=== PATIENT | female | born 1975 | race Caucasian/White ===

== ENCOUNTER 2020-03-04 11:15 | Emergency (ER) | payer MEDICAID, SELFPAY ==
[~2020-03-04] VITALS: Ht 157.5 cm; Wt 62.6 kg
[2020-03-04 11:42] VITALS: BP_SYST 110
--- NOTE | 2020-03-04 11:47 | NUR ---
Patient triaged and placed in waiting room. VSS and patient appears in no acute distress at this time. Accompanied by care worker, awaiting available bed, and MD notified of need for MSE.
[2020-03-04 12:17] LABS: BASOPHILS # (AUTO) 0.1 K/uL (0.0-0.2); BASOPHILS % (AUTO) 0.8 % (0.0-2.0); EOSINOPHILS % (AUTO) 0.5 % (0.0-4.0); HEMATOCRIT 40.3 % (36-48); HEMOGLOBIN 13.9 g/dL (12.0-16.0); LYMPHOCYTES # (AUTO) 1.2 K/uL (1.0-5.5); MEAN CORPUSCULAR HEMOGLOBIN 33 pg (27-31); MEAN CORPUSCULAR HGB CONC 34 % (32-36); MEAN CORPUSCULAR VOLUME 95 fL (79.0-98.0); MONOCYTES # (AUTO) 0.7 K/uL (0.0-1.0); MONOCYTES % (AUTO) 7.7 % (1.7-9.3); PLATELET COUNT (AUTO) 287 K/uL (130-430); RED BLOOD CELL COUNT(AUTO) 4.23 MIL/uL (4.2-6.2); RED CELL DISTRIBUTION WIDTH 12.8 % (9.0-15.0)
[2020-03-04 12:58] LABS: ANION GAP 5 (5-15); CALCIUM 8.9 mg/dL (8.4-11.0); CHLORIDE 102 mmol/L (98-107); CREATININE 0.85 mg/dL (0.55-1.30); GLUCOSE 175 mg/dL (70-99); POTASSIUM 4.4 mmol/L (3.5-5.1); SODIUM SERUM 137 mmol/L (136-145); UREA NITROGEN, BLOOD 11 mg/dL (8-21)
--- NOTE | 2020-03-04 12:58 | NUR ---
Note veraone in EDM - 03/04/20 at 1259 by OMAR Patient triaged and placed ER tent. VSS and patient appears in no acute distress at this time. Awaiting available bed, and MD notified of need for MSE.
[2020-03-04 13:03] LABS: ALANINE AMINOTRANSFERASE 38 U/L (12-78); ALBUMIN 4.3 g/dL (3.4-4.8); ASPARTATE AMINOTRANSFERASE 49 U/L (10-37); TOTAL BILIRUBIN 0.3 mg/dL (0.0-1.0)
[2020-03-04 13:05] LABS: ACETAMINOPHEN < 1 ug/mL (1-30); ALCOHOL, BLOOD < 3 mg/dL (<10); GFR AFRICAN AMERICAN 94 mL/min (>90)
[2020-03-04 17:38] LABS: BARBITURATE, URINE NEGATIVE (NEG <=200); BENZODIAZEPINE, URINE POSITIVE (NEG <=150); CANNABINOID, URINE NEGATIVE (NEG <=50); COCAINE, URINE NEGATIVE (NEG <=150); METHAMPHETAMINES SCREEN,URINE NEGATIVE (NEG <=500); OPIATE, URINE NEGATIVE (NEG <=100); PHENCYCLIDINE SCREEN,URINE NEGATIVE (NEG <=25); UR TRICYCLIC ANTIDEPRESSANTS NEGATIVE (NEG <=300); URINE AMPHETAMINE NEGATIVE (NEG <=500); URINE METHADONE NEGATIVE (NEG <=200); URINE OXYCODONE SCREEN NEGATIVE (NEG <=100); URINE PROPOXYPHENE SCREEN NEGATIVE (NEG <=300)
--- NOTE | 2020-03-04 19:41 | NUR ---
Patient placed on suicide precautions. Patient placed in room within close proximity to nurses' station for closer observation and monitoring. All clothing removed, placed in hospital gown. Metal detector wand used to further screen patient of any potential hazardous belongings. All belongings inventoried, placed in bags and removed from room. Cabinets locked. BP and pulse oximeter cords, and carpet cleaning technician leads removed.
--- NOTE | 2020-03-04 20:10 | NUR ---
Received patient to ER w/ c/o hearing voices which are "loud and obnoxious" telling patient to cut her ears and hair off and also to hurt other people". Voices started this morning after waking up from the motel and voices are still ongoing. Introduced self to patient, positioned for comfort and safety w/ bed to low position sr up. Family member at bedside. Continue to monitor. Patient h/o of sz, sz precautions in effect.
--- NOTE | 2020-03-04 20:55 | NUR ---
patient ok to take her own medication per MD Kruger. Patient administered medications. Will observe for any adverse reaction. Bed to low position sr up, continue to monitor.
[2020-03-04] MEDS ORDERED: HAL5 PO (21:05)
[2020-03-04] MEDS ORDERED: ESCI10TA PO (21:05)
[2020-03-04] MEDS ORDERED: CLOB20TA3 PO (21:05)
[2020-03-04] MEDS ORDERED: LACO100T2 PO (21:05)
[2020-03-04] MEDS ORDERED: DIPH50CA38 PO (21:05)
[2020-03-04] MEDS ORDERED: PRAV40TA PO (21:05)
[2020-03-04] MEDS ORDERED: RUFI400T PO (21:05)
--- NOTE | 2020-03-04 22:43 | NUR ---
Patient resting comfortably at this time in no acute distress, bizarre or unusual behavior noted. Caregiver at bedside. Continue to monitor level of comfort and for safety. Bed to low position sr up.
--- NOTE | 2020-03-05 01:30 | NUR ---
patient asleep resting comfortably in bed, no bizarre or unusual behavior noted. continue to monitor. caregiver at bedside.
--- NOTE | 2020-03-05 03:25 | NUR ---
No change from previous assessment, patient resting comfortably at this time in no acute distress, no bizarre or unusual behavior noted. Caregiver at bedside. continue to monitor.
--- NOTE | 2020-03-05 05:30 | NUR ---
patient asleep but easily arousable, no bizarre or unusuable behavior noted. Awaiting MD Fairchild for evaluation. continue to monitor
--- NOTE | 2020-03-05 05:48 | NUR ---
DR. GARZA AT BEDSIDE EXAMINING PATIENT.
--- NOTE | 2020-03-05 07:12 | NUR ---
Report from Paul MCADAMS
--- NOTE | 2020-03-05 07:15 | NUR ---
PT sleeping in [facility]. Caregiver from referring facility at BS with PT.
--- NOTE | 2020-03-05 07:50 | NUR ---
Security at BS, pt wanded with metal detector.
--- NOTE | 2020-03-05 07:50 | NUR ---
Marlon rodrigues in ED - 03/05/20 at 1040 by [employer] at , pt wanded with meatal detector.
--- NOTE | 2020-03-05 08:10 | NUR ---
Patient given hospital break fast on safety tray.
--- NOTE | 2020-03-05 09:00 | NUR ---
PT caregiver change of shift.
--- NOTE | 2020-03-05 09:44 | NUR ---
SPOKE WITH [facility] NURSE SARAH, PT ACCEPTED TO [facility] UNDER CARE OF DR GARZA, PT TO GO TO FRONT GATE WHERE THEY WILL BE DIRECTED TO INTAKE PER SARAH. WILL CALL FOR TRANSPORT.
--- NOTE | 2020-03-05 10:07 | NUR ---
REPORT GIVEN TO OSCAR MCADAMS
--- NOTE | 2020-03-05 10:48 | NUR ---
Patient to be transferred to [facility]. Is being transferred due to higher level of care. Receiving facility has accepting physician and available space. ER physician has signed transfer form. Patient or responsible alliance party has agreed to transfer and signed form. Patient belongings inventoried and will be sent with patient. Copy of nursing notes, lab reports, EKG, Physicians Orders and X-rays to be sent with patient. Report called to SARAH at receiving facility. Receiving physician is ASHLIE. ambulance service has been called for transfer. ETA is NOW
[2020-03-05 10:49] VITALS: BP_SYST 116
== END 2020-03-05 10:49 ==
LOC: SED 11:15
DX: F20.9 Schizophrenia, unspecified (principal); Z20.828 Contact with and (suspected) exposure to other viral communicable diseases
CPT/HCPCS: 36415; 80053; 80307; 85025; 87426; 99285; G0480; G0481; G0482